=== PATIENT | female | born 1955 | race Hispanic/Latino ===

== ENCOUNTER 2020-04-26 12:57 | Emergency (ER) | payer OTHER ==
[~2020-04-26] VITALS: Ht 172.7 cm; Wt 90.7 kg
--- NOTE | 2020-04-26 14:18 | Diagnostic Imaging Report ---
X-ray right knee multiple views History: Fall Comparison: None Findings: Please see impression Impression: Transverse fracture of the patella with comminution, distraction of at least 2.8 cm between the superior and inferior fragments with associated soft tissue swelling. Signed by: rOville Scruggs MD on 04/26/2020 2:14 PM
--- NOTE | 2020-04-26 15:24 | Emergency Department Note ---
History of Present Illnes History of Present Illness Chief Complaint: General Medicine Complaints History of Present Illness This is a 65 year old female arrives to the ED after sustaining a mechanical fall landing on her right knee. Patient denies any other trauma or head injury. 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 Any updates have been documented here. Past Medical History Recent Fever: No Clinical Suspicion of Infectio: No New/Unexplained Change in Ment: No Past Medical History: None Past Surgical History: None Social History Smoking Cessation: Unknown if ever smoked Counseling Performed: No Alcohol Use: None Any Illegal Drug Use: No TB Exposure/Symptoms: No Physically hurt or threatened: No Other Last Tetanus: UNK Last Flu: N Last Pneumovax: N Review of Systems Review of Systems Constitutional: Reports no symptoms EENTM: Reports no symptoms Cardiovascular: Reports no symptoms Respiratory: Reports no symptoms Gastrointestinal: Reports no symptoms Genitourinary: Reports no symptoms Musculoskeletal: Reports as per HPI, Reports joint swelling Integumentary: Reports no symptoms Neurological: Reports no symptoms Psychological: Reports no symptoms Endocrine: Reports no symptoms Hematological/Lymphatic: Reports no symptoms Physical Exam Related Data Allergies: Coded Allergies: No Known Allergies (Unverified , 04/26/20) Triage Vital Signs Vital Signs Date Time Temp Pulse Resp B/P (MAP) Pulse Ox O2 Delivery O2 Flow Rate FiO2 04/26/20 12:58 98.3 72 18 140/80 95 Vital signs reviewed: Yes Physical Exam CONSTITUTIONAL Constitutional: Present well-developed, Present well-nourished HENT HENT: Present normocephalic, Present atraumatic, Present oropharynx clear/moist, Present nose normal HENT L/R: Present left ext ear normal, Present right ext ear normal EYES Eyes: Reports PERRL, Reports conjunctivae normal NECK Neck: Present ROM normal PULMONARY Pulmonary: Present effort normal, Present breath sounds normal CARDIOVASCULAR Cardiovascular: Present regular rhythm, Present heart sounds normal, Present capillary refill normal, Present normal rate GASTROINTESTINAL Abdominal: Present soft, Present nontender, Present bowel sounds normal GENITOURINARY Genitourinary: Present exam deferred SKIN Skin: Present warm, Present dry MUSCULOSKELETAL Musculoskeletal: Present edema, Present deformity (right knee tenderness and deformity, positive popliteal pulse) NEUROLOGICAL Neurological: Present alert, Present oriented x 3 PSYCHOLOGICAL Psychological: Present mood/affect normal, Present judgement normal Results Imaging Imaging results reviewed: Yes Impressions Impression: Transverse fracture of the patella with comminution, distraction of at least 2.8 cm between the superior and inferior fragments with associated soft tissue swelling. Assessment & Plan Medical Decision Making MDM 65-year-old female arrived to the ED with knee pain after sustaining a mechanical fall. Patient noted to the patellar fracture. Patient's imaging discussed at length with Dr. Schulte, recommended discharge home with outpatient surgical repair. Patient was initially uncomfortable with the idea secondary to pain, once patient's pain was well controlled she was amenable to outpatient follow-up. Dr. Schulte staff call the patient while in the ER and schedule an appointment for the following morning. Patient stable for discharge home and knee immobilizer. Assessment & Plan Final Impression: (1) Right patella fracture Depart Disposition: HOME, SELF-CARE Last Vital Signs Date Time Temp Pulse Resp B/P (MAP) Pulse Ox O2 Delivery O2 Flow Rate FiO2 04/26/20 13:30 68 18 148/70 97 04/26/20 12:58 98.3 Home Meds Reported Medications [place]-3 Fatty Acids/Fish Oil (FISH OIL 1,000 MG CAPSULE) 1 Each Capsule, PO DAILY 04/28/20 Calcium Carbonate (CALCIUM CARBONATE) 500 Mg Tablet, 500 MG PO DAILY, TAB 04/28/20 Multivitamin (MULTI-VITAMIN DAILY) 1 Each Tablet, PO DAILY 04/28/20 Methotrexate Sodium (METHOTREXATE) 2.5 Mg Tablet, 2.5 MG PO WEEKLY, #30 TAB 04/28/20 Discontinued Scripts Acetaminophen With Codeine (TYLENOL WITH CODEINE #3 TABLET) 1 Each Tablet, 300 MG PO Q6HR, #14 TAB Prov:SANDHIR, AMBICA, DO 04/26/20 Tramadol Hcl (ULTRAM) 50 Mg Tablet, 50 MG PO Q6HR PRN for Mild Pain (1-3) or Fever>100.8, #12 TAB Prov:SANDHIR, AMBICA, DO 04/26/20 Hydrocodone Bit/Acetaminophen (NORCO 7.5-325 TABLET) 1 Each Tablet, 1 TAB PO Q6H PRN for PAIN, #20 TAB 0 Refills Prov:DOLLY JACOBS DO 04/26/20 DOLLY JACOBS DO Apr 26, 2020 15:24
[2020-04-26] MEDS ORDERED: TYLENOL WITH C1 EACH PO (15:32)
[2020-04-26] MEDS ORDERED: ULTRAM50 MG PO (15:32)
[2020-04-26] MEDS ORDERED: NORCO 7.5-3251 EACH PO (15:32)
[2020-04-28] MEDS ORDERED: MULTI-VITAMIN1 EACH PO (11:10)
[2020-04-28] MEDS ORDERED: CALCIUM CARBON500 MG PO (11:10)
[2020-04-28] MEDS ORDERED: FISH OIL 1,0001 EAC2 PO (11:10)
[2020-04-28] MEDS ORDERED: METHOTREXATE2.5 MG PO (11:10)
== END 2020-04-26 17:04 | disposition home or self-care (01) ==
LOC: ER 13:03
DX: S82.031A Displaced transverse fracture of right patella, initial encounter for closed fracture (principal); W18.30XA Fall on same level, unspecified, initial encounter
CPT/HCPCS: 99284

== ENCOUNTER → 2020-04-28 | Outpatient (CLI) | payer MEDICARE, OTHER ==
[~2020-04-28] MED LIST: CALCIUM CARBON500 MG PO; FISH OIL 1,0001 EAC2 PO; LOSARTAN POTASS25 MG PO; METHOTREXATE2.5 MG PO; MULTI-VITAMIN1 EACH PO; NORCO 7.5-3251 EACH PO; TYLENOL WITH C1 EACH PO; ULTRAM50 MG PO
--- NOTE | 2020-04-28 12:18 | Diagnostic Imaging Report ---
EXAM: CHEST 2 VIEWS DATE: 04/28/2020 11:50 AM INDICATION: Preoperative evaluation COMPARISON: None FINDINGS: The trachea is midline. The lungs are symmetrically expanded without evidence for large focal consolidation, pneumothorax, or significant pleural effusion. The cardiomediastinal silhouette and pulmonary vasculature are within normal limits. Tortuosity and atherosclerotic calcifications noted of the thoracic aorta. Degenerative changes noted visualized spine. No acute osseous abnormality is identified. The surrounding soft tissues are unremarkable. IMPRESSION: No acute cardiopulmonary process identified. Signed by: Dr. Jonah Bolton MD on 04/28/2020 12:15 PM
[2020-04-28 12:27] LABS: BASOPHILS % 0.4 % (0.0-1.0); EOSINOPHILS # (AUTO) 0.2 (0.0-0.4); EOSINOPHILS % 1.8 % (0.0-6.0); HEMATOCRIT 34.2 % (34.2-44.1); LYMPHOCYTES # (AUTO) 1.3 (1.0-3.2); LYMPHOCYTES % 16.4 % (18.0-39.1); MEAN CORPUSCULAR HGB CONC 32.2 g/dL (31-35); MEAN CORPUSCULAR VOLUME 90.2 fL (81-99); MONOCYTES # (AUTO) 0.9 (0.2-0.8); MONOCYTES % 11.1 % (4.4-11.3); NEUTROPHILS # (AUTO) 5.7 (2.1-6.9); NEUTROPHILS % 69.8 % (38.7-80.0); PLATELET COUNT 278 x10e3/uL (140-360); RED BLOOD COUNT 3.79 x10e6/uL (3.6-5.1); RED CELL DISTRIBUTION WIDTH 13.9 % (11.7-14.4)
== END ==
LOC: RAD 05:00 → EDSTATUS 04-30 09:30
PROVIDERS: ATTEND Orthopaedic Surgery
DX: Z01.818 Encounter for other preprocedural examination (principal); S82.031A Displaced transverse fracture of right patella, initial encounter for closed fracture; Z53.8 Procedure and treatment not carried out for other reasons; Z11.59 Encounter for screening for other viral diseases
CPT/HCPCS: 36415; 71046; 85025; 93005; U0002

== ENCOUNTER 2020-04-29 18:43 | Inpatient (IN) | payer MEDICARE, OTHER ==
[~2020-04-29] VITALS: Ht 172.7 cm; Wt 90.7 kg
[~2020-04-29 18:43] MED LIST changes: -LOSARTAN POTASS25 MG PO
--- NOTE | 2020-04-29 19:41 | Emergency Department Note ---
History of Present Illnes History of Present Illness Chief Complaint: General Medicine Complaints History of Present Illness This is a 65 year old female PRESENTS TO THE ER C/O RT KNEE PAIN; PT DX WITH FRACTURED PATELLA ON SUNDAY; PT WAS TOLD BY DR. ORELLANA TO BE ADMITTED FOR SX TOMORROW. pt states pain is intolerable and pain medication is not helping.. Historian: Patient Arrival Mode: Car Onset (how long ago): day(s) (3) Location: right knee Quality: pain Radiation: Reports non-radiation Severity: severe Duration (how long): day(s) (3) Timing of current episode: constant Progression: worsening Chronicity: new Context: Reports trauma/injury (fell and broke right patella on sunday) Relieving factors: none Exacerbating factors: movement Associated symptoms: Reports denies other symptoms Treatments prior to arrival: none Past Medical/Family History Physician Review I have reviewed the patient's past medical and family history. Any updates have been documented here. Past Medical History Recent Fever: No Clinical Suspicion of Infectio: No New/Unexplained Change in Ment: No Past Medical History: None Past Surgical History: Hysterectomy Other Surgery: SINUS SX Social History Smoking Cessation: Never Smoker Alcohol Use: None Any Illegal Drug Use: No Other Last Tetanus: UNK Review of Systems Review of Systems Constitutional: Reports no symptoms EENTM: Reports no symptoms Cardiovascular: Reports no symptoms Respiratory: Reports no symptoms Gastrointestinal: Reports no symptoms Genitourinary: Reports no symptoms Musculoskeletal: Reports as per HPI Integumentary: Reports no symptoms Neurological: Reports no symptoms Psychological: Reports no symptoms Endocrine: Reports no symptoms Hematological/Lymphatic: Reports no symptoms Physical Exam Related Data Allergies: Coded Allergies: No Known Allergies (Unverified , 04/26/20) Triage Vital Signs Vital Signs Date Time Temp Pulse Resp B/P (MAP) Pulse Ox O2 Delivery O2 Flow Rate FiO2 04/29/20 19:30 99.8 76 18 181/86 96 Physical Exam CONSTITUTIONAL Constitutional: Present well-developed, Present well-nourished, Present distressed (mod) HENT HENT: Present normocephalic, Present atraumatic, Present oropharynx clear/moist, Present nose normal HENT L/R: Present left ext ear normal, Present right ext ear normal EYES Eyes: Reports PERRL, Reports conjunctivae normal NECK Neck: Present ROM normal PULMONARY Pulmonary: Present effort normal, Present breath sounds normal CARDIOVASCULAR Cardiovascular: Present regular rhythm, Present heart sounds normal, Present capillary refill normal, Present normal rate GASTROINTESTINAL Abdominal: Present soft, Present nontender, Present bowel sounds normal GENITOURINARY Genitourinary: Present exam deferred SKIN Skin: Present warm, Present dry MUSCULOSKELETAL Musculoskeletal: Present ROM normal, Present other (right lower extremitt in knee immobilizer, pain to palpation of right patella) NEUROLOGICAL Neurological: Present alert, Present oriented x 3, Present no gross motor or sensory deficits PSYCHOLOGICAL Psychological: Present mood/affect normal, Present judgement normal Results Laboratory Laboratory Laboratory Tests Test 04/29/20 23:40 04/29/20 19:35 White Blood Count 7.50 x10e3/uL (4.8-10.8) Red Blood Count 3.96 x10e6/uL (3.6-5.1) Hemoglobin 11.5 g/dL (12.0-16.0) Hematocrit 35.9 % (34.2-44.1) Mean Corpuscular Volume 90.7 fL (81-99) Mean Corpuscular Hemoglobin 29.0 pg (28-32) Mean Corpuscular Hemoglobin Concent 32.0 g/dL (31-35) Red Cell Distribution Width 13.8 % (11.7-14.4) Platelet Count 306 x10e3/uL (140-360) Neutrophils (%) (Auto) 72.3 % (38.7-80.0) Lymphocytes (%) (Auto) 16.5 % (18.0-39.1) Monocytes (%) (Auto) 9.2 % (4.4-11.3) Eosinophils (%) (Auto) 1.1 % (0.0-6.0) Basophils (%) (Auto) 0.5 % (0.0-1.0) Neutrophils # (Auto) 5.4 (2.1-6.9) Lymphocytes # (Auto) 1.2 (1.0-3.2) Monocytes # (Auto) 0.7 (0.2-0.8) Eosinophils # (Auto) 0.1 (0.0-0.4) Basophils # (Auto) 0.0 (0.0-0.1) Absolute Immature Granulocyte (auto 0.03 x10e3/uL (0-0.1) Prothrombin Time 12.6 seconds (11.9-14.5) Prothromb Time International Ratio 0.89 Activated Partial Thromboplast Time 29.3 seconds (23.8-35.5) Sodium Level 137 mmol/L (136-145) Potassium Level 4.1 mmol/L (3.5-5.1) Chloride Level 101 mmol/L (98-107) Carbon Dioxide Level 28 mmol/L (22-29) Anion Gap 12.1 mmol/L (8-16) Blood Urea Nitrogen 13 mg/dL (7-26) Creatinine 0.70 mg/dL (0.57-1.11) Estimat Glomerular Filtration Rate > 60 ML/MIN (60-) BUN/Creatinine Ratio 19 (6-25) Glucose Level 111 mg/dL (74-118) Calcium Level 9.9 mg/dL (8.4-10.2) Total Bilirubin 0.5 mg/dL (0.2-1.2) Aspartate Amino Transf (AST/SGOT) 21 IU/L (5-34) Alanine Aminotransferase (ALT/SGPT) 23 IU/L (0-55) Alkaline Phosphatase 82 IU/L (40-150) Total Protein 7.5 g/dL (6.5-8.1) Albumin 4.1 g/dL (3.5-5.0) Globulin 3.4 g/dL (2.3-3.5) Albumin/Globulin Ratio 1.2 (0.8-2.0) Urine Color Yellow (YELLOW) Urine Clarity Sl cloudy (CLEAR) Urine pH 6.5 (5 - 7) Urine Specific [place] 1.020 (1.010-1.025) Urine Protein Negative (NEGATIVE) Urine Glucose (UA) Negative (NEGATIVE) Urine Ketones Negative (NEGATIVE) Urine Blood Negative (NEGATIVE) Urine Nitrite Negative (NEGATIVE) Urine Bilirubin Negative (NEGATIVE) Urine Urobilinogen 0.2 mg/dL (0.2 - 1) Urine Leukocyte Esterase Trace (NEGATIVE) Urine RBC None /HPF (0-5) Urine WBC 0-5 /HPF (0-5) Urine Epithelial Cells Moderate /LPF (NONE) Urine Bacteria Few /HPF (NONE) Lab results reviewed: Yes Imaging Imaging results reviewed: Yes Impressions Examination: Single AP view of the chest. COMPARISON: Chest PA and lateral 04/28/2020 INDICATION: Preop broken knee IMPRESSION: 1. Lines and Tubes: None 2. Lungs are well-inflated. Minimal atelectatic changes in the left lower lung. The lungs are otherwise clear. 3. Cardiomediastinal silhouette is normal. Pulmonary vasculature is normal. 4. No acute bony abnormalities. Signed by: Dr. Saqib Mayorga M.D. on 04/29/2020 11:04 PM Procedures 12 Lead ECG Interpretation ECG Interpretation : ECG: ECG 1 [place] Grower: Interpreted by ED physician Date: Apr 29, 2020 Time: 23:35 Rhythm: sinus rhythm Rate: normal BPM: 67 QRS axis: normal ST segments normal: Yes T waves normal: Yes Other findings: no other findings Clinical Impression: normal ECG Assessment & Plan Medical Decision Making MDM pt with intractable pain right knee secondary to patella fx, sent by dr mcdonald for pain control and to be admitted to have surgery to repair fractured patella pre op labd ordered, ekg ordered, morphine 4 mg iv ordered zofran 4 mg iv ordered I SPOKE WITH DR WORLEY AND DR MCDONALD, ADMIT TO INPATIENT Assessment & Plan Final Impression: (1) Right patella fracture (2) Intractable pain Depart Disposition: ADMITTED Last Vital Signs Date Time Temp Pulse Resp B/P (MAP) Pulse Ox O2 Delivery O2 Flow Rate FiO2 04/29/20 19:30 99.8 76 18 181/86 96 Home Meds Reported Medications [place]-3 Fatty Acids/Fish Oil (FISH OIL 1,000 MG CAPSULE) 1 Each Capsule, PO DAILY 04/28/20 Calcium Carbonate (CALCIUM CARBONATE) 500 Mg Tablet, 500 MG PO DAILY, TAB 04/28/20 Multivitamin (MULTI-VITAMIN DAILY) 1 Each Tablet, PO DAILY 04/28/20 Methotrexate Sodium (METHOTREXATE) 2.5 Mg Tablet, 2.5 MG PO WEEKLY, #30 TAB 04/28/20 Discontinued Scripts Acetaminophen With Codeine (TYLENOL WITH CODEINE #3 TABLET) 1 Each Tablet, 300 MG PO Q6HR, #14 TAB Prov:SANDHIR, AMBICA, DO 04/26/20 Tramadol Hcl (ULTRAM) 50 Mg Tablet, 50 MG PO Q6HR PRN for Mild Pain (1-3) or Fever>100.8, #12 TAB Prov:SANDHIR, AMBICA, DO 04/26/20 Hydrocodone Bit/Acetaminophen (NORCO 7.5-325 TABLET) 1 Each Tablet, 1 TAB PO Q6H PRN for PAIN, #20 TAB 0 Refills Prov:DOLLY JACOBS, 04/26/20 SIDRA ANN MD Apr 29, 2020 19:41
[2020-04-29] MEDS ORDERED: MORPHINE SULFATE 2 MG/ML SYR 1ML IV STA (19:42)
[2020-04-29] MEDS ORDERED: ONDANSETRON HCL INJ 2MG/ML 2ML 2 MG/ML VIAL IV STA (19:42)
[2020-04-29] MEDS ORDERED: HYDROCODONE/APAP 10MG-325MG TAB PO ONE (20:15)
--- NOTE | 2020-04-29 20:50 | NUR ---
ORTHOPEDIC CONSULTATION 65 year old community ambulator presents to the ED with complaints of right knee pain that has been present several days since her fall early in the week. Pain localized in the knee. She denies numbness, paresthesias or loss of distal motor function. Pain localized to knee. Denies pain in any other extremity. She was scheduled to have surgery as an outpatient tomorrow, however he pain was significant. Pmdhx: Denies Allergies: NKDA SurgHx: Hysterectomy FamHx: Non-contributory SocHx: Denies Tob, Alcohol or Drug use AVSS Right Knee in brace Swollen Palpable patella defect with inability to straight leg raise Motor: + EHL, FHL, TA, G/S Sensation grossly intact to light touch Pulse + DP, Post tib Compartments soft Negative calf tenderness Xrays: Displaced right patella fracture 65 year old female with displaced right patella fracture Plan for ORIF tomorrow NPO except medications DVT Prophylaxis WBAT in knee immobilizer locked in extension Follow up PreOp labs Hold anticoagulation after midnight Mary [place], DO [facility] [place]
[2020-04-29] MEDS ORDERED: HEPARIN SOD (PORCINE) 5,000 UNIT/ML VIAL SC ONE (21:15)
[2020-04-29 22:04] LABS: BILIRUBIN,URINE NEGATIVE (NEGATIVE); CLARITY,URINE SL CLOUDY (CLEAR); COLOR,URINE YELLOW (YELLOW); KETONES,URINE NEGATIVE (NEGATIVE); LEUKOCYTE ESTERASE ,URINE TRACE (NEGATIVE); NITRITE,URINE NEGATIVE (NEGATIVE); PROTEIN,URINE DIPSTICK NEGATIVE (NEGATIVE); URINE UROBILINOGEN 0.2 mg/dL (0.2 - 1)
[2020-04-29 22:17] LABS: BACTERIA,URINE FEW /HPF; EPITHELIAL CELLS,URINE MODERATE /LPF; WBC,URINE (MAN) 0-5 /HPF (0-5)
--- NOTE | 2020-04-29 23:07 | Diagnostic Imaging Report ---
Examination: Single AP view of the chest. COMPARISON: Chest PA and lateral 04/28/2020 INDICATION: Preop broken knee IMPRESSION: 1. Lines and Tubes: None 2. Lungs are well-inflated. Minimal atelectatic changes in the left lower lung. The lungs are otherwise clear. 3. Cardiomediastinal silhouette is normal. Pulmonary vasculature is normal. 4. No acute bony abnormalities. Signed by: Dr. Saqib Mayorga M.D. on 04/29/2020 11:04 PM
[2020-04-30] VITALS (8 sets, daily range): BP systolic 131–168; BP diastolic 65–89
[2020-04-30 00:01] LABS: BASOPHILS % 0.5 % (0.0-1.0); EOSINOPHILS # (AUTO) 0.1 (0.0-0.4); EOSINOPHILS % 1.1 % (0.0-6.0); HEMATOCRIT 35.9 % (34.2-44.1); HEMOGLOBIN 11.5 g/dL (12.0-16.0); LYMPHOCYTES # (AUTO) 1.2 (1.0-3.2); LYMPHOCYTES % 16.5 % (18.0-39.1); MEAN CORPUSCULAR VOLUME 90.7 fL (81-99); MONOCYTES # (AUTO) 0.7 (0.2-0.8); MONOCYTES % 9.2 % (4.4-11.3); NEUTROPHILS # (AUTO) 5.4 (2.1-6.9); NEUTROPHILS % 72.3 % (38.7-80.0); PLATELET COUNT 306 x10e3/uL (140-360); RED BLOOD COUNT 3.96 x10e6/uL (3.6-5.1); RED CELL DISTRIBUTION WIDTH 13.8 % (11.7-14.4)
[2020-04-30 00:10] LABS: INR 0.89; PROTHROMBIN TIME 12.6 seconds (11.9-14.5)
[2020-04-30 00:11] LABS: PARTIAL THROMBOPLASTIN TIME 29.3 seconds (23.8-35.5)
[2020-04-30 00:18] LABS: ALANINE AMINOTRANSFERASE 23 IU/L (0-55); ALBUMIN 4.1 g/dL (3.5-5.0); ALBUMIN/GLOBULIN RATIO 1.2 (0.8-2.0); ALKALINE PHOSPHATASE 82 IU/L (40-150); ANION GAP 12.1 mmol/L (8-16); BLOOD UREA NITROGEN 13 mg/dL (7-26); BUN/CREATININE RATIO 19 (6-25); CALCIUM 9.9 mg/dL (8.4-10.2); CARBON DIOXIDE 28 mmol/L (22-29); CHLORIDE 101 mmol/L (98-107); EST GLOMERULAR FILTRATION RATE > 60 ML/MIN (60-); GLUCOSE 111 mg/dL (74-118); POTASSIUM 4.1 mmol/L (3.5-5.1); SODIUM 137 mmol/L (136-145)
[2020-04-30] MEDS ORDERED: MORPHINE SULFATE 2 MG/ML SYR 1ML IV PRN (01:00)
--- NOTE | 2020-04-30 01:40 | NUR ---
Patient arrived to the unit from Er in a wheel chair with c/o right patella fracture.admission asessment done.aaox4.right knee brace on.no resp.distress.pain voiced 07/15.bruises and swelling noted to right knee. has seen the patient in Er.npo advised.oriented to the unit.bed locked and in lowest position.phone and call light within reach.instructed to call for assistance as needed.iv to let ac is patent.iv fluid running.walk with cane.
[2020-04-30] MEDS: SODIUM CHLORIDE 0.9% 1000ML 1,000 ML IV SCH ×3 (02:06→17:00)
[2020-04-30] MEDS ORDERED: HEPARIN SOD (PORCINE) 5,000 UNIT/ML VIAL SC ONE (02:07)
[2020-04-30] MEDS: ONDANSETRON HCL INJ 2MG/ML 2ML 2 MG/ML VIAL IV PRN ×3 (02:58→23:00)
--- NOTE | 2020-04-30 07:09 | NUR ---
Bed side shift report given to oncoming rn.stable condition.
[2020-04-30] MEDS ORDERED: BUPIVACAINE HCL 0.5% INJ 30 ML VIAL INJ ONE (08:31)
--- NOTE | 2020-04-30 09:04 | NUR ---
TAKEN FOR PROCEDURE. NO S/S OF ACUTE DISTRESS NOTED.
[2020-04-30] MEDS ORDERED: EPHEDRINE SULFATE INJ 50 MG/ML VIAL ONE (11:20)
[2020-04-30] MEDS ORDERED: ONDANSETRON HCL INJ 2MG/ML 2ML 2 MG/ML VIAL ONE (11:20)
[2020-04-30] MEDS ORDERED: LIDOCAINE HCL 2% LOCAL INJ 5 ML SDV VIAL INJ ONE (11:20)
[2020-04-30] MEDS ORDERED: CEFAZOLIN SOD 1 GM VIAL ONE (11:20)
[2020-04-30] MEDS ORDERED: PROPOFOL IV EMULSION 10 MG/ML 20 ML VIAL ONE (11:20)
[2020-04-30] MEDS ORDERED: DEXAMETHASONE SOD PHOS INJ 4 MG/ML VIAL ONE (11:20)
[2020-04-30] MEDS ORDERED: ETOMIDATE 2 MG/ML 10 ML INJ IV ONE (11:20)
[2020-04-30] MEDS ORDERED: SEVOFLURANE INHAL SOLN 250 ML PEN BTL ONE (11:20)
[2020-04-30] MEDS ORDERED: FENTANYL CITRATE/PF 100MCG/2 ML INJ ONE ×2 (11:30→15:07)
[2020-04-30] MEDS ORDERED: HYDROCODONE/APAP 5MG-325MG TAB PO PRN (11:30)
--- NOTE | 2020-04-30 11:44 | NUR ---
OPERATIVE NOTE - ORTHOPEDICS PREOPERATIVE DIAGNOSIS: Right Displaced Patella Fracture POSTOPERATIVE DIAGNOSIS: Right Displaced Patella Fracture PROCEDURE PERFORMED: Right Patella Open Reduction Internal Fixation, Flouroscopic Interpretation STUD MASTER/MISTRESS: SHARIFA Schaffer TOURNIQUET TIME: 68 minutes EBL: 20cc Indication: The patient is a 65-year-old female who suffered acute rupture of her patellar diagnosed both by exam as well as x-ray the evening before surgical intervention. She had a massive deficit at the body of the patella on exam. OPERATIVE PROCEDURE: Prior to being taken to the operating room, patient identity and laterality of the procedure was confirmed. The patient was laid supine on the operative table and received general anesthetic with LMA by Anesthesia Department. The patient received 2 grams of Ancef. A thigh high tourniquet was placed and all bony prominences were well padded. He is prepped and draped in the usual sterile manner. Limb was elevated, exsanguinated and tourniquet placed at 350 mmHg for approximately 68 minutes. Straight incision is carried down through skin and subcutaneous tissue anteriorly. Hemostasis was controlled via electrocoagulation. The fracture edges were thoroughly irrigated and reduced under flourscopic interpretation. After reduction was obtained, two jose cannulated jose 4. 0 screws 36 x 38 mm were placed holding reduction. A fiber tape was placed in te nsion band fashion and the knee was taken through a range of motion demonstratin g adequate fixation. A running #0-Vicryl suture was utilized for medial and lateral retinaculum repair. A running #2-0 Vicryl for paratenon and bursal closure. There was good reduction of the tendon to the patella. The repair as put through a range of motion from 0-90 degrees without diastasis. Copious irrigation was carried out. Interrupted #2-0 Vicryl was utilized for subcutaneous fat closure and 3-0 Monocryl were placed through the skin. After the skin was clean and dried, an Aquacel dressing was placed, ABDs and a compressive dressing with Demond wrap was placed from the foot to the proximal thigh. Tourniquet was dropped at 68 minutes. Digits were warm with normal pulses present at the end of the case. The patient's leg was placed in a hinged brace locked in full extension. Anesthesia was withdrawn and he awoke without complication and was transferred to the recovery room in stable condition.
[2020-04-30] MEDS ORDERED: HYDRALAZINE HCL 20 MG/ML VIAL ONE (12:14)
--- NOTE | 2020-04-30 12:30 | NUR ---
Back from procedure. Resting with eyes closed. Arousable to verbal stimuli. Respirations even and unlabored. KENJI to RLE clean, dry, and intact. Immobilizer in place.
[2020-04-30] MEDS: MORPHINE SULFATE 2 MG/ML SYR 1ML IV PRN ×2 (13:54→23:00)
[2020-04-30] MEDS ORDERED: MIDAZOLAM HCL 2 MG/2 ML VIAL ONE (15:07)
[2020-04-30] MEDS: ASPIRIN 325 MG TAB PO SCH (16:34)
[2020-04-30] MEDS: CEFAZOLIN SOD 1 GM/NS 50ML 50 ML IV SCH (16:34)
[2020-04-30] MEDS ORDERED: HYDRALAZINE HCL 20 MG/ML VIAL IV PRN (18:30)
--- NOTE | 2020-04-30 19:15 | NUR ---
Report given to oncoming nurse of patient's status.Resting in bed. Side rails upx2, call light within reach. No s/s of acute distress noted. KENJI wrap to RLE clean, dry, and intact.
--- NOTE | 2020-04-30 20:00 | NUR ---
Received change of shift report from AM nurse. Walking rounds completed.
--- NOTE | 2020-04-30 21:16 | History and Physical ---
PRIMARY CARE PHYSICIAN: Dr. Mee Robles at [facility]. CHIEF COMPLAINT: Right knee pain, status post fall five days ago. HISTORY OF PRESENT ILLNESS: This is a 65-year-old female with no past medical history, presented to the ER after a fall five days ago. She reported slipped on a wet floor and workup shows the right patella fracture. She denies any dizziness, syncope, chest pain, shortness of breath, or change in LOC during or after the fall. She has no edema noted, pedal pulses palpable, no further complaints. PAST MEDICAL HISTORY: None. PAST SURGICAL HISTORY: She had sinus surgery. FAMILY MEDICAL HISTORY: She denies any. SOCIAL HISTORY: She denies any tobacco, alcohol, or illicit drug use. ALLERGIES: NO KNOWN DRUG ALLERGIES. REVIEW OF SYSTEMS: Twelve systems reviewed and negative except as noted in the HPI. PHYSICAL EXAMINATION: VITAL SIGNS: Temperature 98.4, pulse is 81, respirations 16, blood pressure 141/72, pulse ox is 97% on room air. GENERAL: In no acute distress. HEENT: Normocephalic and atraumatic. NECK: Supple. LUNGS: Clear to auscultation. CARDIOVASCULAR: Regular rate and rhythm. GI: Soft and nontender. NEUROLOGIC: Alert, awake, and oriented x3. MUSCULOSKELETAL: Moves all extremities. Right lower extremity decreased ROM due to pain. IMAGING: Chest x-ray negative. LABORATORY DATA: WBC 7.5, hemoglobin 11.5, hematocrit 35.9, platelets 306. Sodium 137, potassium 4.1, creatinine 0.70, estimated GFR is greater than 60. AST 21, ALT 23, PT 12.6, INR 0.89, APTT 29.3. UA is clean with leukocytes esterase. IMPRESSION: 1. Status post mechanical fall with right patellar fracture. Status post open reduction and internal fixation of right knee this morning per Dr. Desir. Pain management as needed, physical therapy to evaluate and treat. 2. Pain management. [place] as needed. 3. Deep vein thrombosis prophylaxis. Heparin b.i.d. per Ortho. PLAN: To continue pain management and physical therapy to evaluate and treat. Case management has been consulted for help PT/OT. Anticipate discharge home tomorrow. Dictated by OSCAR Li Alyssaching MD GARIMA Pineda/FLORECITA /[id number]
--- NOTE | 2020-04-30 22:00 | NUR ---
Patient c/o pain to right leg. Pain and nausea meds given as ordered by MD. Continue monitor.
[2020-05-01] VITALS: BP 166/64
[2020-05-01] MEDS: SODIUM CHLORIDE 0.9% 1000ML 1,000 ML IV SCH ×2 (00:42→01:00)
[2020-05-01] MEDS: CEFAZOLIN SOD 1 GM/NS 50ML 50 ML IV SCH ×2 (00:42→08:24)
[2020-05-01 04:00] VITALS: BP 171/76
--- NOTE | 2020-05-01 05:00 | NUR ---
Patient received additional pain meds. Asst to reposition in bed.
[2020-05-01 05:25] LABS: HEMATOCRIT 34.7 % (34.2-44.1); HEMOGLOBIN 11.3 g/dL (12.0-16.0)
[2020-05-01] MEDS: ONDANSETRON HCL INJ 2MG/ML 2ML 2 MG/ML VIAL IV PRN ×2 (05:29→10:01)
[2020-05-01] MEDS: MORPHINE SULFATE 2 MG/ML SYR 1ML IV PRN ×2 (05:29→10:02)
[2020-05-01] MEDS: ASPIRIN 325 MG TAB PO SCH (08:24)
[2020-05-01 08:36] VITALS: BP 165/66
--- NOTE | 2020-05-01 10:18 | NUR ---
RECEIVED HOME HEALTH ORDER. MET WITH PT AND DAUGHTER NIA. DISCUSSED FREEDOM TO CHOOSE THE AGENCY. AGREED TO SENT REFERRAL TO [facility] . CHOICE LETTER SIGNED AND PLACED IN THE CHART.FAXED CLINICALS TO [facility](FAX: [phone], PH: [phone]), FAX CONFIRMATION RECEIVED.
[2020-05-01] MEDS ORDERED: LOSARTAN POTASS25 MG PO (11:37)
[2020-05-01 11:59] VITALS: BP 177/78
[2020-05-01] MEDS ORDERED: LOSARTAN POTASSIUM 25 MG TAB PO NR (12:00)
--- NOTE | 2020-05-01 21:06 | Discharge Summary ---
PCP: Dr. Mee Robles at [facility]. FINAL DISCHARGE DIAGNOSES: 1. Status post mechanical fall with right patellar fracture, status post open reduction and internal fixation of right knee. 2. Elevated blood pressure. 3. Pain management. CONSULTANTS: Dr. Desir with Orthopedics. PROCEDURES: She has had open reduction and internal fixation of her right knee per Orthopedics. HISTORY: Per HPI. HOSPITAL COURSE: This is a 65-year-old female with no past medical history, status post mechanical fall, presented with right patellar fracture. Orthopedics was consulted and she underwent open reduction and internal fixation of the right knee. She was monitored overnight, pain management as needed. Physical Therapy was consulted and evaluated the patient. She was noted to have elevated blood pressures during her stay, she denies any history of high blood pressure, likely due to increased pain and stress. She was treated as needed with hydralazine, she will be given a prescription for losartan as has remained excessively high during her stay. She is feeling much better today. Dressing intact, knee brace in place, afebrile, no chest pain or shortness of breath. We will discharge home to follow up with Dr. Baeza and her PCP in 1 to 2 weeks for further evaluation. PHYSICAL EXAMINATION: VITAL SIGNS: Temperature is 98.4, pulse is 76, respirations 16, blood pressure 177/78, pulse ox is 97% on room air. GENERAL: No acute distress. HEENT: Normocephalic and atraumatic. NECK: Supple. LUNGS: Clear to auscultation. CARDIOVASCULAR: Regular rate and rhythm. NEUROLOGIC: Alert, awake, and oriented x3. MUSCULOSKELETAL: Decreased range of motion in the right lower extremity due to pain and recent surgery. PSYCH: Calm. CONDITION AT DISCHARGE: Improved and stable. DISCHARGE MEDICATIONS: Please see medication reconciliation list. FOLLOWUP: Follow up with PCP, Dr. Robles and Dr. Desir in 1 to 2 weeks . Total discharge time is 33 minutes. Dictated by OSCAR Li Cristin Ambriz MD MY/MODL /[id number] cc: Mee Robles MD [facility]
== END 2020-05-01 12:15 | disposition home or self-care (01) | DRG 505 ==
LOC: ER 18:43 → ERHOLD 04-30 00:54 → MED/SURG 04-30 01:40
PROVIDERS: ADMIT Internal Medicine; ATTEND Internal Medicine
PROC: 0QSL04Z Reposition Right Tarsal with Internal Fixation Device, Open Approach (ICD-10-PCS; principal; 2020-04-30 09:30)
DX: S82.001A Unspecified fracture of right patella, initial encounter for closed fracture (principal); W19.XXXA Unspecified fall, initial encounter; W01.0XXA Fall on same level from slipping, tripping and stumbling without subsequent striking against object, initial encounter
CPT/HCPCS: 36415; 71045; 76000; 80053; 81001; 85014; 85018; 85025; 85610; 85730; 86850; 86900; 93005; 99284; C1713; C1769; J0360; J0690; J1100; J1644; J2001; J2250; J2270; J2405; J3010; J7030

== ENCOUNTER 2023-05-02 08:03 | Emergency (ER) | payer OTHER, MEDICARE ==
[~2023-05-02] VITALS: Ht 165.1 cm; Wt 68.0 kg
[~2023-05-02 08:03] MED LIST changes: +LOSARTAN POTASS25 MG PO
[2023-05-02] MEDS ORDERED: TRAMADOL HCL 50 MG TAB PO ONE (08:45)
[2023-05-02] MEDS ORDERED: TRAMADOL HCL 50 MG TAB ONE (09:07)
[2023-05-02 12:03] VITALS: O2SAT 96
[2023-05-02 12:49] VITALS: BP 171/72; PULSE 81
== END 2023-05-02 12:51 | disposition other institution (70) ==
LOC: FSED 08:10
DX: I60.9 Nontraumatic subarachnoid hemorrhage, unspecified (principal); M54.42 Lumbago with sciatica, left side; S00.81XA Abrasion of other part of head, initial encounter; W01.0XXA Fall on same level from slipping, tripping and stumbling without subsequent striking against object, initial encounter; Y93.01 Activity, walking, marching and hiking; Y92.89 Other specified places as the place of occurrence of the external cause; I10 Essential (primary) hypertension; E03.9 Hypothyroidism, unspecified
CPT/HCPCS: 70450; 70486; 71045; 72125; 72131; 72192; 93005; 99284

== ENCOUNTER 2025-06-20 12:58 | Emergency (ER) | payer MEDICARE ==
[~2025-06-20] VITALS: Ht 165.1 cm; Wt 71.8 kg
[2025-06-20 13:10] VITALS: TEMP 98.2
[2025-06-20] MEDS ORDERED: LISINOPRIL-HCT1 EAC1 (13:37)
[2025-06-20] MEDS ORDERED: ARAVA20 MG PO (13:37)
[2025-06-20] MEDS ORDERED: LEVOTHYROXINE100 MCG (13:37)
[2025-06-20] MEDS ORDERED: HYDROXYCHLOROQ100 MG PO (13:37)
[2025-06-20] MEDS: FAMOTIDINE 20 MG/2 ML VIAL IV ONE (13:50)
[2025-06-20] MEDS: ONDANSETRON HCL INJ 2MG/ML 2ML 2 MG/ML VIAL IV ONE (13:50)
[2025-06-20] MEDS: KETOROLAC TROMETHAMINE 30 MG/ML VIAL IV ONE (13:50)
[2025-06-20] MEDS: SODIUM CHLORIDE 0.9% 500ML 500 ML IV STA ×2 (13:50→15:25)
[2025-06-20] MEDS ORDERED: ONDANSETRON ODT4 MG PO (16:03)
[2025-06-20] MEDS ORDERED: MAALOX MAXIMUM355 ML PO (16:03)
[2025-06-20] MEDS ORDERED: PANTOPRAZOLE SO40 MG PO (16:03)
[2025-06-20 16:11] VITALS: PULSE 63; RESP 14; O2SAT 97
== END 2025-06-20 16:11 | disposition home or self-care (01) ==
LOC: FSED 13:02
DX: R11.2 Nausea with vomiting, unspecified (principal); K29.70 Gastritis, unspecified, without bleeding; E87.5 Hyperkalemia; E87.1 Hypo-osmolality and hyponatremia; K44.9 Diaphragmatic hernia without obstruction or gangrene; R10.10 Upper abdominal pain, unspecified; I10 Essential (primary) hypertension; E03.9 Hypothyroidism, unspecified; M06.9 Rheumatoid arthritis, unspecified; M19.09 Primary osteoarthritis, other specified site
CPT/HCPCS: 74176; 80048; 80076; 81003; 84484; 85025; 96374; 96375; 99284; J1308; J1885; J2405; J7040

== ENCOUNTER 2025-08-15 06:24 | Emergency (ER) | payer MEDICARE ==
[~2025-08-15] VITALS: Ht 165.1 cm; Wt 71.7 kg
[2025-08-15 06:24] VITALS: TEMP 98.6
[~2025-08-15 06:24] MED LIST changes: +ARAVA20 MG PO; +HYDROXYCHLOROQ100 MG PO; +LEVOTHYROXINE100 MCG; +LISINOPRIL-HCT1 EAC1; +MAALOX MAXIMUM355 ML PO; +ONDANSETRON ODT4 MG PO; +PANTOPRAZOLE SO40 MG PO
[2025-08-15] MEDS: FAMOTIDINE 20 MG/2 ML VIAL IV STA (06:53)
[2025-08-15] MEDS: ONDANSETRON HCL INJ 2MG/ML 2ML 2 MG/ML VIAL IV STA (06:54)
[2025-08-15] MEDS: SODIUM CHLORIDE 0.9% 1000ML 1,000 ML IV ONE ×2 (06:54→07:43)
[2025-08-15] MEDS ORDERED: SODIUM CHLORIDE 0.9% 1000ML 1,000 ML ONE (06:56)
[2025-08-15 06:58] LABS: BASOPHILS % 0.9 % (0.0-1.0); EOSINOPHILS % 0.4 % (0.0-6.0); LYMPHOCYTES % 8.2 % (18.0-39.1); MONOCYTES % 13.3 % (4.4-11.3); NEUTROPHILS % 77.2 % (38.7-80.0); RED CELL DISTRIBUTION WIDTH 14.5 % (11.7-14.4)
[2025-08-15 07:29] LABS: EST GLOMERULAR FILTRATION RATE 49.0 ML/MIN (>=60)
[2025-08-15] MEDS: Morphine 4mg INJECTION 4 MG/ML INJ IV ONE (07:43)
[2025-08-15 08:45] VITALS: PULSE 94; RESP 16
[2025-08-15] MEDS: Vancomycin IV 1.25 GM in SODIUM CHLORIDE 0.9% 250ML 250 ML IV SCH (10:32)
[2025-08-15 10:35] VITALS: BP 143/74; PULSE 99; RESP 17; O2SAT 96
[2025-08-15 14:05] LABS: BAND NEUTROPHILS % (MANUAL) 47 %; LYMPHOCYTES % (MANUAL) 11 % (19-48); METAMYELOCYTES % (MANUAL) 2 % (0-0); MONOCYTES % (MANUAL) 9 % (3.4-9.0); NEUTROPHILS % (MANUAL) 31 % (40-74); PLATELET ESTIMATE ADEQUATE; PLATELET MORPHOLOGY COMMENT NORMAL
== END 2025-08-15 10:40 | disposition short-term general hospital (02) ==
LOC: ER 06:26
DX: K63.1 Perforation of intestine (nontraumatic) (principal); R65.21 Severe sepsis with septic shock; E87.20 Acidosis, unspecified; E87.1 Hypo-osmolality and hyponatremia; R10.10 Upper abdominal pain, unspecified; K57.90 Diverticulosis of intestine, part unspecified, without perforation or abscess without bleeding; R18.8 Other ascites; J90 Pleural effusion, not elsewhere classified; J98.11 Atelectasis
CPT/HCPCS: 36415; 74176; 80053; 83605; 83690; 85025; 87040; 93005; 99284; J1308; J2270; J2405; J2543; J3373; J7030; J7050